=== PATIENT | female | born 1940 | race Caucasian/White ===

== ENCOUNTER 2019-02-17 21:45 | Emergency (ER) | payer OTHER, BC ==
[~2019-02-17] VITALS: Ht 157.5 cm; Wt 77.1 kg
[2019-02-17 21:50] VITALS: BP_SYST 165
[2019-02-17 22:56] LABS: BILIRUBIN,URINE NEGATIVE (NEGATIVE); BLOOD, URINE NEGATIVE (NEGATIVE); CLARITY/URINE CLEAR (CLEAR); COLOR,URINE YELLOW (YELLOW); GLUCOSE,URINE NEGATIVE (NEGATIVE); KETONES,URINE NEGATIVE (NEGATIVE); LEUKOCYTE ESTERASE ,URINE NEGATIVE (NEGATIVE); NITRITE, URINE NEGATIVE (NEGATIVE); PH,URINE 6.5 (5.0-8.0); PROTEIN URINE NEGATIVE (NEGATIVE); UROBILINOGEN,URINE 0.2 (0.2-1.0)
[2019-02-17 22:57] LABS: BASOPHILS # (AUTO) 0.1 K/uL (0.0-0.2); BASOPHILS % (AUTO) 1.1 % (0.0-2.0); EOSINOPHILS # (AUTO) 0.3 K/uL (0.0-0.4); EOSINOPHILS % (AUTO) 4.4 % (0.0-4.0); HEMATOCRIT 36.5 % (36-48); HEMOGLOBIN 12.2 g/dL (12.0-16.0); LYMPHOCYTES # (AUTO) 1.7 K/uL (1.0-5.5); LYMPHOCYTES % (AUTO) 25.9 % (20.5-51.5); MEAN CORPUSCULAR HEMOGLOBIN 30 pg (27-31); MEAN CORPUSCULAR HGB CONC 34 % (32-36); MEAN CORPUSCULAR VOLUME 89 fL (79.0-98.0); MONOCYTES # (AUTO) 0.6 K/uL (0.0-1.0); MONOCYTES % (AUTO) 9.5 % (1.7-9.3); NEUTROPHILS # (AUTO) 3.8 K/uL (1.8-7.7); NEUTROPHILS % (AUTO) 59.1 % (40.0-70.0); PLATELET COUNT (AUTO) 179 K/uL (130-430); RED BLOOD CELL COUNT(AUTO) 4.11 MIL/uL (4.2-6.2); RED CELL DISTRIBUTION WIDTH 13.5 % (9.0-15.0); WHITE BLOOD COUNT (AUTO) 6.5 K/uL (4.8-10.8)
[2019-02-17 23:15] LABS: ANION GAP 10 (5-15); CALCIUM 8.9 mg/dL (8.4-11.0); CHLORIDE 105 mmol/L (98-107); CREATININE 0.81 mg/dL (0.55-1.30); GLUCOSE 103 mg/dL (70-99); POTASSIUM 3.6 mmol/L (3.5-5.1); SODIUM SERUM 141 mmol/L (136-145); UREA NITROGEN, BLOOD 24 mg/dL (8-21)
[2019-02-17 23:20] LABS: ALANINE AMINOTRANSFERASE 20 U/L (12-78); ALBUMIN 3.3 g/dL (3.4-4.8); ASPARTATE AMINOTRANSFERASE 16 U/L (10-37); TOTAL BILIRUBIN 0.2 mg/dL (0.0-1.0)
[2019-02-17 23:21] LABS: ACETAMINOPHEN < 1 ug/mL (1-30); ALCOHOL, BLOOD < 3 mg/dL (<10)
[2019-02-18] MEDS ORDERED: TEMAZEPAM 7.5 MG CAPSULE ONE (02:54)
[2019-02-18 13:43] VITALS: BP_SYST 115
[2019-02-18] MEDS ORDERED: TEMAZEPAM 7.5 MG CAPSULE PO SCH (21:00)
== END 2019-02-18 13:43 ==
LOC: SED 21:45
DX: R45.851 Suicidal ideations (principal); F03.90 Unspecified dementia, unspecified severity, without behavioral disturbance, psychotic disturbance, mood disturbance, and anxiety
CPT/HCPCS: 36415; 71045; 80053; 81003; 82140; 85025; 99285; G0480; G0481; G0482

== ENCOUNTER 2021-09-14 18:55 | Emergency (ER) | payer OTHER, MEDICARE ==
[~2021-09-14] VITALS: Ht 160 cm; Wt 90.7 kg
[2021-09-14 19:05] VITALS: BP_SYST 170
[2021-09-14] MEDS ORDERED: ACETAMINOPHEN 500 MG TABLET PO ONE (21:15)
[2021-09-14 21:36] VITALS: BP_SYST 171
== END 2021-09-14 21:36 | disposition home or self-care (01) ==
LOC: SED 18:55
DX: S43.401A Unspecified sprain of right shoulder joint, initial encounter (principal); Z79.899 Other long term (current) drug therapy; X50.9XXA Other and unspecified overexertion or strenuous movements or postures, initial encounter; Y93.89 Activity, other specified; Y92.89 Other specified places as the place of occurrence of the external cause; Y99.8 Other external cause status
CPT/HCPCS: 73030; 93005; 99283

== ENCOUNTER 2024-03-08 13:33 | Emergency (ER) | payer OTHER, MEDICARE ==
[~2024-03-08] VITALS: Ht 157.5 cm; Wt 81.6 kg
[2024-03-08] MEDS: LORazepam 2 MG/ML VIAL IVP ONE (14:18)
[2024-03-08] MEDS: cefTRIAXone 1 GM IVPB PREMIX 50 ML IV ONE (14:20)
[2024-03-08 14:47] LABS: BASOPHILS % (AUTO) 0.5 % (0.0-2.0); EOSINOPHILS # (AUTO) 0.1 K/uL (0.0-0.4); EOSINOPHILS % (AUTO) 1.5 % (0.0-4.0); HEMATOCRIT 36.3 % (36-48); HEMOGLOBIN 12.9 g/dL (12.0-16.0); LYMPHOCYTES # (AUTO) 1.2 K/uL (1.0-5.5); LYMPHOCYTES % (AUTO) 12.6 % (20.5-51.5); MEAN CORPUSCULAR HEMOGLOBIN 31 pg (27-31); MEAN CORPUSCULAR HGB CONC 35 % (32-36); MEAN CORPUSCULAR VOLUME 87 fL (79.0-98.0); MONOCYTES % (AUTO) 10.8 % (1.7-9.3); NEUTROPHILS # (AUTO) 6.8 K/uL (1.8-7.7); NEUTROPHILS % (AUTO) 74.6 % (40.0-70.0); PLATELET COUNT (AUTO) 188 K/uL (130-430); RED BLOOD CELL COUNT(AUTO) 4.18 MIL/uL (4.2-6.2); RED CELL DISTRIBUTION WIDTH 13.2 % (9.0-15.0); WHITE BLOOD COUNT (AUTO) 9.2 K/uL (4.8-10.8)
[2024-03-08 15:00] LABS: ALANINE AMINOTRANSFERASE 16 U/L (12-78); ALBUMIN 3.3 g/dL (3.4-4.8); ANION GAP 8 (5-15); ASPARTATE AMINOTRANSFERASE 15 U/L (10-37); CALCIUM 8.5 mg/dL (8.4-11.0); CARBON DIOXIDE 27 mmol/L (23-29); CHLORIDE 102 mmol/L (98-107); CREATININE 1.05 mg/dL (0.55-1.30); GLUCOSE 124 mg/dL (74-106); POTASSIUM 4.3 mmol/L (3.5-5.1); SODIUM SERUM 137 mmol/L (136-145); TOTAL BILIRUBIN 0.9 mg/dL (0.0-1.0); TOTAL PROTEIN, SERUM 7.9 g/dL (6.4-8.3); UREA NITROGEN, BLOOD 18 mg/dL (8-21)
[2024-03-08 15:03] LABS: BILIRUBIN,DIRECT 0.2 mg/dL (0.0-0.3)
[2024-03-08 16:48] LABS: BILIRUBIN,URINE NEGATIVE (NEGATIVE); CLARITY/URINE CLEAR (CLEAR); COLOR,URINE YELLOW (YELLOW); GLUCOSE,URINE NEGATIVE (NEGATIVE); KETONES,URINE NEGATIVE (NEGATIVE); LEUKOCYTE ESTERASE ,URINE 1+ (NEGATIVE); NITRITE, URINE POSITIVE (NEGATIVE); PROTEIN URINE NEGATIVE (NEGATIVE); UROBILINOGEN,URINE 0.2 (0.2-1.0)
[2024-03-08 17:26] LABS: BLOOD, URINE TRACE (NEGATIVE)
[2024-03-08] MEDS ORDERED: NITR-85 PO (17:46)
[2024-03-08 17:50] VITALS: BP_SYST 132; PULSE 100; RESP 24; TEMP 98.3; O2SAT 97
[2024-03-08 18:16] LABS: BACTERIA,URINE MODERATE /HPF (None Seen)
== END 2024-03-08 17:58 | disposition hospice, inpatient (51) ==
LOC: SED 13:33
DX: R45.1 Restlessness and agitation (principal); R53.1 Weakness; R41.82 Altered mental status, unspecified; Z79.899 Other long term (current) drug therapy
CPT/HCPCS: 99285; 96365; 70450; 71045; 96375; 80076; 80048; 81000; 81001; 85025; 87040; 87086; 84484; 36415; 93005; 83605; J0696; J2060; 81015